=== PATIENT | female | born 1930 | race Caucasian/White ===

== ENCOUNTER → 2017-09-08 | Outpatient (CLI) | payer MEDICARE, OTHER | END | disposition home or self-care (01) | LOC: CFH 11:02 | PROVIDERS: ATTEND Family Medicine | DX: Z12.31 Encounter for screening mammogram for malignant neoplasm of breast (principal) | CPT/HCPCS: 77067 ==

== ENCOUNTER 2019-06-13 11:07 | Emergency (ER) | payer MEDICARE, OTHER ==
[~2019-06-13] VITALS: Ht 142.2 cm; Wt 52.5 kg
[2019-06-13] MEDS ORDERED: LIDOCAINE-MPF 1%, 5ML INFIL ONE (11:30)
[2019-06-13] MEDS ORDERED: LIDOCAINE 1%-EPI 1:100K, 20ML ONE (11:35)
[2019-06-13] MEDS ORDERED: diltiazem PO (11:54)
[2019-06-13] MEDS ORDERED: CELE200C PO (11:54)
[2019-06-13] MEDS ORDERED: DIPH,PERTUSS(ACELL),TET VAC/PF 0.5 ML IM-VACC ONE ×2 (12:42→13:00)
[2019-06-13 12:48] VITALS: BP 128/88
--- NOTE | 2019-06-13 13:18 | NUR ---
REPORT RECEIVED FROM ELISE BUSTILLO.
--- NOTE | 2019-06-13 13:51 | NUR ---
Patient given discharge instructions and they have confirmed that they understand the instructions. Patient ambulatory with steady gait.
== END 2019-06-13 13:57 | disposition home or self-care (01) ==
LOC: ED 13:30
DX: S01.01XA Laceration without foreign body of scalp, initial encounter (principal); I10 Essential (primary) hypertension; W10.1XXA Fall (on)(from) sidewalk curb, initial encounter; Y93.89 Activity, other specified; Y92.89 Other specified places as the place of occurrence of the external cause; Y99.8 Other external cause status
CPT/HCPCS: 12031; 70450; 90715; 99284